=== PATIENT | female | born 1935 | race Caucasian/White ===

== ENCOUNTER 2019-05-10 00:21 | Emergency (ER) | payer MEDICARE, OTHER ==
[~2019-05-10] VITALS: Ht 154.9 cm; Wt 68.0 kg
[2019-05-10 00:28] VITALS: Ht 154.9 cm; Wt 68.0 kg
[2019-05-10 00:55] LABS: BASOPHIL % 0.6 % (0-2); PLATELET COUNT 212 x10^3mcL (130-400); RED CELL DISTRIBUTION WIDTH 14.1 % (11.5-14.5)
[2019-05-10 01:06] LABS: CALCIUM 8.7 mg/dL (8.5-10.1); CARBON DIOXIDE 30.3 mmol/L (21-32); CHLORIDE SERUM 103 mmol/L (98-107); GLUCOSE SERUM 144 mg/dL (74-106); POTASSIUM SERUM 4.5 mmol/L (3.5-5.1); SODIUM SERUM 139 mmol/L (136-145)
[2019-05-10 01:11] LABS: ALBUMIN 3.4 g/dL (3.4-5.0); ALKALINE PHOSPHATASE 117 U/L (46-116); ALT/SGPT 23 U/L (14-59); AST/SGOT 11 U/L (15-37); BILIRUBIN TOTAL 0.29 mg/dL (0.20-1.00); CHOLESTEROL 182 mg/dL (<200); TOTAL PROTEIN, SERUM 7.3 g/dL (6.4-8.2)
[2019-05-10 03:42] VITALS: BP 142/63
[2019-05-10 03:54] LABS: microscopic required? YES; urine erythrocyte TRACE (NEGATIVE)
== END 2019-05-10 03:42 | disposition home or self-care (01) ==
LOC: ED 00:21
PROVIDERS: Specialist
DX: S16.1XXA Strain of muscle, fascia and tendon at neck level, initial encounter (principal); S51.801A Unspecified open wound of right forearm, initial encounter; N39.0 Urinary tract infection, site not specified; F03.90 Unspecified dementia, unspecified severity, without behavioral disturbance, psychotic disturbance, mood disturbance, and anxiety; W01.0XXA Fall on same level from slipping, tripping and stumbling without subsequent striking against object, initial encounter; Y93.89 Activity, other specified; Y92.89 Other specified places as the place of occurrence of the external cause; Y99.8 Other external cause status
CPT/HCPCS: G0480; J0696; Q0092